=== PATIENT | male | born 1970 | race Hispanic/Latino ===

== ENCOUNTER 2019-05-26 15:00 | Emergency (ER) | payer SELFPAY ==
[2019-05-26] MEDS ORDERED: ONDANSETRON 4 MG/2 ML VIAL ONE ×2 (15:24→17:28)
[2019-05-26] MEDS ORDERED: NA CHLORIDE 0.9% 1,000 ML ONE (15:24)
[2019-05-26] MEDS ORDERED: MORPHINE 4 MG/ML SYR ONE (15:24)
[2019-05-26 15:41] LABS: Absolute Lymphocytes (CBC) 4.8 K/uL (0.7-4.9); Basophils % 0.4 % (0-1.3); Hematocrit 45.2 % (39.6-49.0); MPV 8.9 fL (7.6-11.3); RBC Red Blood Cell Count 5.07 M/uL (4.33-5.43)
[2019-05-26 15:55] LABS: Albumin 3.8 g/dL (3.4-5.0); Bilirubin Direct 0.1 mg/dL (0-0.2); Bilirubin Total 0.4 mg/dL (0.2-1.0); Potassium 3.5 mmol/L (3.5-5.1); Protein, Total 7.4 g/dL (6.4-8.2)
[2019-05-26] MEDS ORDERED: HYDROMORPHONE HCL 1 MG/ML INJ ONE ×2 (16:03→18:56)
--- NOTE | 2019-05-26 16:54 | RAD REPORT ---
EXAM DESCRIPTION: CT - Abdomen Pelvis W Contrast - 05/26/2019 4:45 pm CLINICAL HISTORY: Abdominal pain COMPARISON: none. TECHNIQUE: Computed axial tomography of the abdomen pelvis was obtained. 100 cc Isovue-300 was admin istered intravenously. Oral contrast was not requested which limits evaluation of bowel. All CT scans are performed using dose optimization technique as appropriate and may include automated exposure control or mA/KV adjustment according to patient size. FINDINGS: Mild fatty liver The Spleen, pancreas, adrenal and left kidney appear unremarkable. Mild right hydronephrosis. Delayed concentration of contrast within the right kidney. 7 millimeter ca lculus distal right ureter Hounsfield unit 1000 There is no evidence of diverticulitis. Normal appendix IMPRESSION: 7 millimeter calculus distal right ureter resulting in mild right hydronephrosis
[2019-05-26 17:44] LABS: Urine Blood 3+ (NEG); Urine Glucose NEGATIVE (NEG); Urine Protein 1+ (NEG); Urine Specific Gravity >1.030 (1.005-1.030)
[2019-05-26] MEDS ORDERED: TAMSULOSIN 0.4 MG SR CAP ONE (17:48)
[2019-05-26] MEDS ORDERED: NA CHLORIDE 0.9% 2,000 ML ONE (17:48)
--- NOTE | 2019-05-26 18:18 | ER ---
Nurse's Notes [facility] Name: Carlos Allen Age: 48 yrs Sex: Male : 1970 Arrival Date: 05/26/2019 Time: 15:03 Bed 19 Private MD: Diagnosis: Calculus of urinary tract in diseases classified elsewhere Presentation: 05/25 15:10 Chief complaint: Patient states: i have RLQ pain for a month on and off but its worse mg2 today like an hour ago. Coronavirus screen: The patient has NOT traveled to [place] in the past 14 days. Proceed with normal triage procedures. The patient has NOT had contact with known and/or suspected case of Coronavirus. Proceed with normal triage procedures. Ebola Screen: No symptoms or risks identified at this time. Initial Sepsis Screen: Does the patient meet any 2 criteria? No. Patient's initial sepsis screen is negative. Does the patient have a suspected source of infection? No. Patient's initial sepsis screen is negative. Risk Assessment: Do you want to hurt yourself or someone else? Patient reports no desire to harm self or others. 15:10 Method Of Arrival: Ambulatory mg2 15:10 Acuity: LA 2 mg2 15:55 Onset of symptoms was May 26, 2019 at 14:00. mg2 Historical: - Allergies: 15:51 No Known Allergies; mg2 - Home Meds: 15:51 None [Active]; mg2 - PMHx: 15:51 None; mg2 - PSHx: 15:51 None; mg2 - Immunization history:: Flu vaccine is up to date. - Social history:: Smoking status: Patient denies any tobacco usage or history of. Patient/guardian denies using alcohol, street drugs, IV drugs, Patient/guardian denies using The patient lives with spouse. - Family history:: not pertinent. Screenin:54 Abuse screen: Denies threats or abuse. Denies injuries from another. Nutritional mg2 screening: No deficits noted. Tuberculosis screening: No symptoms or risk factors identified. Fall Risk IV access (20 points). Assessment: 15:10 General: Appears uncomfortable, Behavior is cooperative. Pain: Complains of pain in mg2 abdomen Pain at worst was 10 out of 10 on a pain scale. Quality of pain is described as aching, Pain began gradually. Neuro: Level of Consciousness is awake, alert, obeys commands, Oriented to person, place, time, situation. Cardiovascular: Capillary refill < 3 seconds Patient's skin is warm and dry. Respiratory: Airway is patent Respiratory effort is even, unlabored, Respiratory pattern is regular, symmetrical. GI: Bowel sounds present X 4 quads. Abdomen is tender to palpation in right lower quadrant. : No signs and/or symptoms were reported regarding the genitourinary system. EENT: No signs and/or symptoms were reported regarding the EENT system. Derm: Skin is intact, is healthy with good turgor, Skin is pink, warm \T\ dry. normal. Musculoskeletal: Circulation, motion, and sensation intact. Capillary refill < 3 seconds. 16:30 Reassessment: Patient appears in no apparent distress at this time. Patient and/or mg2 family updated on plan of care and expected duration. Pain level reassessed. Patient is alert, oriented x 3, equal unlabored respirations, skin warm/dry/pink. 17:56 Reassessment: Patient appears in no apparent distress at this time. Patient states mg2 feeling better. 18:37 Reassessment: patient for dc after iv fluids is done. mg2 19:15 Reassessment: Patient appears in no apparent distress at this time. Patient and/or wh family updated on plan of care and expected duration. Pain level reassessed. Patient is alert, oriented x 3, equal unlabored respirations, skin warm/dry/pink. 19:52 Reassessment: Patient appears in no apparent distress at this time. Patient and/or wh family updated on plan of care and expected duration. Pain level reassessed. Patient is alert, oriented x 3, equal unlabored respirations, skin warm/dry/pink. Iv consumed. Vital Signs: 15:27 BP 149 / 85; Pulse 66; Resp 18; Temp 98.6; Pulse Ox 98% on R/A; Weight 81.65 kg; Height mh5 5 ft. 10 in. (177.80 cm); Pain 10/10; 17:00 BP 128 / 70; Pulse 75; Resp 16; Temp 97.5(O); Pulse Ox 97% ; lt1 17:54 BP 122 / 78; Pulse 62; Resp 18; Pulse Ox 100% on R/A; mg2 19:30 BP 133 / 77; Pulse 83; Resp 18; Pulse Ox 100% ; wh 15:27 Body Mass Index 25.83 (81.65 kg, 177.80 cm) [facility] ED Course: 15:03 Patient arrived in ED. rg4 15:11 Candy Colon MD is Attending Physician. ma2 15:17 Jacoby Hodges, RN is Primary Nurse. mg2 15:18 Radiology exam delayed due to lab results not completed at this time. (BUN/Creatinine). 2 15:26 Initial lab(s) drawn, by me, sent to lab. Inserted saline lock: 20 gauge in right [facility] antecubital area, using aseptic technique. Blood collected. 15:29 Patient has correct armband on for positive identification. Bed in low position. Call [facility] light in reach. Side rails up X 1. Adult w/ patient. Pulse ox on. NIBP on. 15:31 Basic Metabolic Panel Sent. [facility] 15:31 CBC with Diff Sent. [facility] 15:31 Creatinine for Radiology Sent. [facility] 15:31 Hepatic Function Sent. [facility] 15:31 Lipase Sent. [facility] 15:51 Triage completed. mg2 15:54 No provider procedures requiring assistance completed. mg2 15:55 Arm band placed on right wrist. mg2 16:47 CT Abd/Pelvis - IV Contrast Only In Process Unspecified. EDMS 17:01 . lt1 19:54 IV discontinued, intact, bleeding controlled, No redness/swelling at site. Administered Medications: 15:30 Drug: NS 0.9% 1000 ml Route: IV; Rate: 1 bolus; Site: right antecubital; mg2 17:55 Follow up: Response: No adverse reaction; IV Status: Completed infusion; IV Intake: mg2 1000ml 15:30 Drug: morphine 4 mg Route: IVP; Site: right antecubital; mg2 17:55 Follow up: Response: No adverse reaction; RASS: Alert and Calm (0) mg2 15:30 Drug: Zofran (Ondansetron) 4 mg Route: IVP; Site: right antecubital; mg2 17:55 Follow up: Response: No adverse reaction mg2 16:01 Drug: Dilaudid 1 mg Route: IVP; Site: right antecubital; mg2 17:55 Follow up: Response: No adverse reaction mg2 17:29 Drug: Zofran (Ondansetron) 4 mg Route: IVP; Site: right antecubital; mg2 17:53 Follow up: Response: No adverse reaction [facility] 17:50 Drug: NS 0.9% 2000 ml Route: IV; Rate: 1 bolus; Site: right antecubital; mg2 19:54 Follow up: Response: No adverse reaction; IV Status: Completed infusion 17:50 Drug: Flomax 0.4 mg Route: PO; mg2 19:54 Follow up: Response: No adverse reaction 19:01 Drug: Dilaudid 1 mg Route: IVP; Site: right antecubital; 19:54 Follow up: Response: No adverse reaction; Pain is decreased; RASS: Alert and Calm (0) Intake: 17:55 IV: 1000ml; Total: 1000ml. [facility] [place] Outcome: 18:16 Discharge ordered by . ncStacey 19:53 Discharged to home ambulatory, with family. 19:53 Condition: stable 19:53 Discharge instructions given to patient, family, Instructed on discharge instructions, follow up and referral plans. no drinking with medication, no driving heavy equipment, medication usage, urine strainer, POC Demonstrated understanding of instructions, follow-up care, medications, POC Prescriptions given X 3. 19:55 Patient left the ED. Signatures: Dispatcher [employer] EDMS Tania Bond, TETE EPSTEIN iw Kitty Grijalva Maria mh5 McGuire, Victoria vm2 Russel Jovel Candy Colon MD MD ma2 Jacoby Hodges RN RN mg2 Anita Garcia lt1
--- NOTE | 2019-05-26 18:19 | EDPHYS ---
Physician Documentation [facility] Name: Carlos Allen Age: 48 yrs Sex: Male : 1970 Arrival Date: 05/26/2019 Time: 15:03 Bed 19 Private MD: ED Physician Candy Colon HPI: 05/25 18:13 This 48 yrs old Male presents to ER via Ambulatory with complaints of ma2 Abdominal Pain. 18:13 The patient complains of pain in the left mid back. Onset: The symptoms/episode ma2 began/occurred gradually, 1 day(s) ago. Associated signs and symptoms: Pertinent negatives: dysuria, urinary frequency, hematuria, pain radiating to the lower extremities. Severity of pain: At its worst the pain was mild moderate in the emergency department the pain is unchanged. The patient has not experienced similar symptoms in the past. Historical: - Allergies: 15:51 No Known Allergies; mg2 - Home Meds: 15:51 None [Active]; mg2 - PMHx: 15:51 None; mg2 - PSHx: 15:51 None; mg2 - Immunization history:: Flu vaccine is up to date. - Social history:: Smoking status: Patient denies any tobacco usage or history of. Patient/guardian denies using alcohol, street drugs, IV drugs, Patient/guardian denies using The patient lives with spouse. - Family history:: not pertinent. ROS: 18:13 Constitutional: Negative for fever, chills, and weight loss. ma2 18:13 All other systems are negative. Exam: 18:13 Constitutional: This is a well developed, well nourished patient who is awake, alert, ma2 and in no acute distress. Chest/axilla: Normal chest wall appearance and motion. Nontender with no deformity. No lesions are appreciated. Cardiovascular: Regular rate and rhythm with a normal S1 and S2. No gallops, murmurs, or rubs. Normal PMI, no JVD. No pulse deficits. Respiratory: Lungs have equal breath sounds bilaterally, clear to auscultation and percussion. No rales, rhonchi or wheezes noted. No increased work of breathing, no retractions or nasal flaring. Abdomen/GI: Soft, non-tender, with normal bowel sounds. No distension or tympany. No guarding or rebound. No evidence of tenderness throughout. Vital Signs: 15:27 BP 149 / 85; Pulse 66; Resp 18; Temp 98.6; Pulse Ox 98% on R/A; Weight 81.65 kg; Height 5 5 ft. 10 in. (177.80 cm); Pain 10/10; 17:00 BP 128 / 70; Pulse 75; Resp 16; Temp 97.5(O); Pulse Ox 97% ; lt1 17:54 BP 122 / 78; Pulse 62; Resp 18; Pulse Ox 100% on R/A; mg2 19:30 BP 133 / 77; Pulse 83; Resp 18; Pulse Ox 100% ; wh 15:27 Body Mass Index 25.83 (81.65 kg, 177.80 cm) 5 MDM: 15:11 Patient medically screened. ma2 18:13 Differential diagnosis: nephrolithiasis, pyelonephritis, UTI, pancreatitis. Data ma2 reviewed: vital signs, nurses notes. Counseling: I had a detailed discussion with the patient and/or guardian regarding: the historical points, exam findings, and any diagnostic results supporting the discharge/admit diagnosis, the presence of at least one elevated blood pressure reading (>120/80) during this emergency department visit, the need for outpatient follow up. Response to treatment: the patient's symptoms have markedly improved after treatment. 05/25 15:17 Order name: Basic Metabolic Panel; Complete Time: 17:28 ia2 05/25 15:17 Order name: CBC with Diff; Complete Time: 17:28 ia2 05/25 15:17 Order name: Creatinine for Radiology; Complete Time: 17:28 ia2 05/25 15:17 Order name: Hepatic Function; Complete Time: 17:28 ia2 05/25 15:17 Order name: Lipase; Complete Time: 17:28 ia2 05/25 16:10 Order name: Urine Dipstick--Ancillary (enter results); Complete Time: 18:12 bd 05/25 15:17 Order name: CT Abd/Pelvis - IV Contrast Only; Complete Time: 17:28 ia2 05/25 15:17 Order name: IV Saline Lock; Complete Time: 15:32 ia2 05/25 15:17 Order name: Labs collected and sent; Complete Time: 15:32 ia2 05/25 15:17 Order name: Urine Dipstick-Ancillary (obtain specimen); Complete Time: 16:01 ma2 Administered Medications: 15:30 Drug: NS 0.9% 1000 ml Route: IV; Rate: 1 bolus; Site: right antecubital; mg2 17:55 Follow up: Response: No adverse reaction; IV Status: Completed infusion; IV Intake: mg2 1000ml 15:30 Drug: morphine 4 mg Route: IVP; Site: right antecubital; mg2 17:55 Follow up: Response: No adverse reaction; RASS: Alert and Calm (0) mg2 15:30 Drug: Zofran (Ondansetron) 4 mg Route: IVP; Site: right antecubital; mg2 17:55 Follow up: Response: No adverse reaction mg2 16:01 Drug: Dilaudid 1 mg Route: IVP; Site: right antecubital; mg2 17:55 Follow up: Response: No adverse reaction mg2 17:29 Drug: Zofran (Ondansetron) 4 mg Route: IVP; Site: right antecubital; mg2 17:53 Follow up: Response: No adverse reaction [facility] 17:50 Drug: NS 0.9% 2000 ml Route: IV; Rate: 1 bolus; Site: right antecubital; mg2 19:54 Follow up: Response: No adverse reaction; IV Status: Completed infusion 17:50 Drug: Flomax 0.4 mg Route: PO; mg2 19:54 Follow up: Response: No adverse reaction 19:01 Drug: Dilaudid 1 mg Route: IVP; Site: right antecubital; 19:54 Follow up: Response: No adverse reaction; Pain is decreased; RASS: Alert and Calm (0) Disposition: 05/26/19 18:16 Discharged to Home. Impression: Calculus of urinary tract in diseases classified elsewhere. - Condition is Stable. - Discharge Instructions: Kidney Stones, Lithotripsy. - Prescriptions for Tylenol- Codeine #3 300-30 mg Oral Tablet - take 2 tablet by ORAL route every 6 hours As needed; 30 tablet. Zofran 4 mg Oral Tablet - take 1 tablet by ORAL route every 12 hours As needed; 6 tablet. Flomax 0.4 mg Oral Capsule, Sust. Release 24 hr - take 1 capsule by ORAL route once daily 1/2 hour following the same meal each day; 30 capsule. - Medication Reconciliation Form, Thank You Letter, Antibiotic Education, Prescription Opioid Use form. - Follow up: Private Physician; When: Tomorrow; Reason: Continuance of care. Signatures: Dispatcher [employer] Russel Bain Candy Colon MD MD ma2 Jacoby Hodges RN RN mg2 Corrections: (The following items were deleted from the chart) 19:55 18:16 05/26/2019 18:16 Discharged to Home. Impression: Calculus of urinary tract in diseases classified elsewhere. Condition is Stable. Forms are Medication Reconciliation Form, Thank You Letter, Antibiotic Education, Prescription Opioid Use. Follow up: Private Physician; When: Tomorrow; Reason: Continuance of care. ma2
[2019-05-26 22:01] VITALS: TEMP 97.5
[2019-05-26 22:03] VITALS: O2SAT 100
[2019-05-26 22:05] VITALS: BP 133/77
== END 2019-05-26 19:55 | disposition home or self-care (01) ==
LOC: ER 15:00
DX: N20.9 Urinary calculus, unspecified (principal)
CPT/HCPCS: 36415; 74177; 80048; 80076; 81003; 83690; 85025; 96361; 96374; 96375; 99284; J1170; J2405; J7030; Q9967